=== PATIENT | male | born 1975 | race Two or more races ===

== ENCOUNTER 2019-11-02 13:50 | Emergency (ER) | payer OTHER, BC ==
--- NOTE | 2019-11-02 14:40 | EDM.PDOC ---
ED HPI GENERAL MEDICAL PROBLEM - General Chief Complaint: Upper Extremity Injury/Pain Stated Complaint: HURT RT ARM Time Seen by Provider: 11/02/19 14:30 Source of Information: Reports: Patient History Limitations: Reports: No Limitations - History of Present Illness INITIAL COMMENTS - FREE TEXT/NARRATIVE: HISTORY AND PHYSICAL: History of present illness: Patient is a 44-year-old male who presents to the emergency room today with complaints of right elbow pain that radiates into his forearm. 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 He also has hit his upper extremities into things and states he may have injured it without knowing. Pain has progressively gotten worse over the past several days. He notices when he is using his upper extremity he has pain that originates in the elbow and moves into the forearm musculature. He denies any numbness, tingling, saddle paresthesia or weakness of the upper extremity. Review of systems: As per history of present illness and below otherwise all systems reviewed and negative. Past medical history: As per history of present illness and as reviewed below otherwise noncontributory. Surgical history: As per history of present illness and as reviewed below otherwise noncontributory. Social history: See social history for further information Family history: As per history of present illness and as reviewed below otherwise noncontributory. Physical exam: General: HEENT: Atraumatic, normocephalic, pupils equal and reactive bilaterally, negative for conjunctival pallor or scleral icterus, mucous membranes moist, TMs normal bilaterally, throat clear, neck supple, nontender, trachea midline. No drooling or trismus noted. No meningeal signs. No hot potato voice noted. Lungs: Clear to auscultation, breath sounds equal bilaterally, chest nontender. Heart: S1S2, regular rate and rhythm without overt murmur Abdomen: Soft, nondistended, nontender. Negative for masses or hepatosplenomegaly. Negative for costovertebral tenderness. Pelvis: Stable nontender. Genitourinary: Deferred. Rectal: Deferred. Skin: Intact, warm, dry. No lesions or rashes noted. Extremities: Moves all extremities per self without difficulty or deficits. Pain during resisted wrist and digit extension and during passive wrist flexion of the elbow extended. No soft tissue swelling noted. Strong radial pulse. Strong grasp. No olecranon tenderness. Neurovascular unremarkable. Neuro: Awake, alert, oriented. Cranial nerves II through XII unremarkable. Cerebellum unremarkable. Motor and sensory unremarkable throughout. Exam nonfocal. Notes: Due to patient's uncertainty of injury I will get an x-ray to rule out any occult fracture. X-ray shows no acute findings. Medication, splinting and supportive care measures were reviewed and discussed. Voices understanding and is agreeable to plan of care. Denies any further questions or concerns at this time. Diagnostics: X-ray Therapeutics: Toradol IM Prescription: Diclofenac Impression: Epicondylitis Plan: 1. Rest, ice and use the brace/strap as we discussed. Epicondylitis (tennis elbow) can take up to 6 weeks to improve 2. Tylenol and Diclofenac as directed. Do not take any additional NSAIDs such as ibuprofen or Aleve while taking this medication. Please take with food. 3. Follow-up with an orthopedic provider as we discussed. Return to the ED as needed and as discussed. Definitive disposition and diagnosis as appropriate pending reevaluation and review of above. Right Elbow Pain Score (Numeric/FACES): 5 - Related Data Allergies Allergy/AdvReac Type Severity Reaction Status Date / Time No Known Allergies Allergy Verified 11/02/19 14:30 Home Meds: Home Meds atoMOXetine HCl [Strattera] 07/30/18 [History] metFORMIN HCl [Metformin HCl] 07/30/18 [History] Methylphenidate [Ritalin] 11/02/19 [History] Pioglitazone [Actos] 11/02/19 [History] Past Medical History Psychiatric History: Reports: ADHD Endocrine/Metabolic History: Reports: Diabetes, Type II - Infectious Disease History Infectious Disease History: Reports: Chicken Pox Social & Family History - Family History Family Medical History: Noncontributory - Tobacco Use Smoking Status *Q: Current Every Day Smoker Years of Tobacco use: 25 Packs/Tins Daily: 0.5 - Caffeine Use Caffeine Use: Reports: Energy Drinks, Soda - Recreational Drug Use Recreational Drug Use: No Review of Systems - Review of Systems Review Of Systems: Comprehensive ROS is negative, except as noted in HPI. ED EXAM, GENERAL - Physical Exam Exam: See Below (See dictation) Course - Vital Signs Last Recorded V/S: Last Vital Signs Temp 98.0 F 11/02/19 14:29 Pulse 92 11/02/19 14:29 Resp 17 11/02/19 14:29 BP 182/97 H 11/02/19 14:29 Pulse Ox 95 11/02/19 14:29 - Orders/Labs/Meds Meds: Medications Discontinued Medications Generic Name Dose Route Start Last Admin Trade Name Christine PRN Reason Stop Dose Admin Ketorolac Tromethamine 60 mg 11/02/19 14:42 11/02/19 14:52 Toradol IM 11/02/19 14:43 60 mg ONETIME ONE Administration Departure - Departure Time of Disposition: 15:51 Disposition: Home, Self-Care 01 Clinical Impression: Epicondylitis - Discharge Information Referrals: Colby Crystal [Primary Care Provider] - Forms: ED Department Discharge Additional Instructions: The following information is given to patients seen in the emergency department who are being discharged to home. This information is to outline your options for follow-up care. We provide all patients seen in our emergency department with a follow-up referral. The need for follow-up, as well as the timing and circumstances, are variable depending upon the specifics of your emergency department visit. If you don't have a primary care physician on staff, we will provide you with a referral. We always advise you to contact your personal physician following an emergency department visit to inform them of the circumstance of the visit and for follow-up with them and/or the need for any referrals to a consulting specialist. The emergency department will also refer you to a specialist when appropriate. This referral assures that you have the opportunity for follow-up care with a specialist. All of these measure are taken in an effort to provide you with optimal care, which includes your follow-up. Under all circumstances we always encourage you to contact your private physician who remains a resource for coordinating your care. When calling for follow-up care, please make the office aware that this follow-up is from your recent emergency room visit. If for any reason you are refused follow-up, please contact the [facility] Emergency Department at and asked to speak to the emergency department charge nurse. [facility] [address] [place] [id number] [facility] [address] [place] [address] 1. Rest, ice and use the brace/strap as we discussed. Epicondylitis (tennis elbow) can take up to 6 weeks to improve 2. Tylenol and Diclofenac as directed. Do not take any additional NSAIDs such as ibuprofen or Aleve while taking this medication. Please take with food. 3. Follow-up with an orthopedic provider as we discussed. Return to the ED as needed and as discussed. Sepsis Event Note - Evaluation Sepsis Screening Result: No Definite Risk - Focused Exam Vital Signs: Vital Signs Temp Pulse Resp BP Pulse Ox 11/02/19 14:29 98.0 F 92 17 182/97 H 95 Date Exam was Performed: 11/02/19 Time Exam was Performed: 15:48
[2019-11-02] MEDS ORDERED: Ketorolac 60 MG/2 ML SDV IM ONE (14:42)
--- NOTE | 2019-11-02 15:36 | CR ---
Right elbow: 3 views of the right elbow were obtained. No joint effusion is seen. Joint spaces are preserved. No acute fracture, dislocation or other bony abnormality is identified. Impression: 1. No abnormality is appreciated on right elbow study. Diagnostic code #1 Study was dictated in [place] Standard Time
== END 2019-11-02 16:12 | disposition home or self-care (01) ==
LOC: MW.ED 13:50
DX: M77.11 Lateral epicondylitis, right elbow (principal); F90.9 Attention-deficit hyperactivity disorder, unspecified type; E11.9 Type 2 diabetes mellitus without complications; F17.210 Nicotine dependence, cigarettes, uncomplicated; Z79.84 Long term (current) use of oral hypoglycemic drugs; Z79.899 Other long term (current) drug therapy
CPT/HCPCS: 73080; 96372; 99283; J1885

== ENCOUNTER 2021-02-14 17:45 | Emergency (ER) | payer BC ==
[2021-02-14] MEDS ORDERED: Sodium Chloride 0.9% 10 ML Syringe FLUSH PRN (18:23)
[2021-02-14] MEDS ORDERED: Sodium Chloride 0.9% 2.5 ML Syringe FLUSH PRN (18:23)
[2021-02-14] MEDS ORDERED: diphenhydrAMINE 50 MG/ML SDV IVPUSH ONE ×2 (18:23→18:27)
[2021-02-14] MEDS ORDERED: Haloperidol Lactate 5 MG/ML SDV IM ONE (18:26)
[2021-02-14] MEDS ORDERED: LORazepam 2 MG/ML SDV IVPUSH ONE (18:27)
--- NOTE | 2021-02-14 18:45 | EDM.PDOC ---
<Igor Jay - Last Filed: 02/14/21 21:34> ED HPI GENERAL MEDICAL PROBLEM - General Chief Complaint: Behavioral/Psych Stated Complaint: ANXIETY Time Seen by Provider: 02/14/21 18:02 - Related Data Allergies Allergy/AdvReac Type Severity Reaction Status Date / Time No Known Allergies Allergy Verified 02/14/21 18:07 Home Meds: Home Meds atoMOXetine HCl [Strattera] 25 mg PO DAILY 07/30/18 [History] metFORMIN HCl [Metformin HCl] 500 mg PO DAILY 07/30/18 [History] Methylphenidate [Ritalin] 5 mg PO DAILY 11/02/19 [History] Pioglitazone [Actos] 15 mg PO DAILY 11/02/19 [History] Departure - Departure Time of Disposition: 21:35 Disposition: DC/Tfer to Other 70 Condition: Good Clinical Impression: Psychosis - Discharge Information Instructions: Caring for Your Mental Health, Schizophrenia Forms: ED Department Discharge Additional Instructions: Please follow-up with the resources provided crisis center. The following information is given to patients seen in the emergency department who are being discharged to home. This information is to outline your options for follow-up care. We provide all patients seen in our emergency department with a follow-up referral. The need for follow-up, as well as the timing and circumstances, are variable depending upon the specifics of your emergency department visit. If you don't have a primary care physician on staff, we will provide you with a referral. We always advise you to contact your personal physician following an emergency department visit to inform them of the circumstance of the visit and for follow-up with them and/or the need for any referrals to a consulting specialist. The emergency department will also refer you to a specialist when appropriate. This referral assures that you have the opportunity for follow-up care with a specialist. All of these measure are taken in an effort to provide you with optimal care, which includes your follow-up. Under all circumstances we always encourage you to contact your private physician who remains a resource for coordinating your care. When calling for follow-up care, please make the office aware that this follow-up is from your recent emergency room visit. If for any reason you are refused follow-up, please contact the [facility] Emergency Department at and asked to speak to the emergency department charge nurse. - Assessment/Plan Assessment:: Patient is a 45-year-old male presents with acute psychosis. He was received in signout from Dr. Weaver at 7 PM. Patient given Haldol and Ativan. Patient calm and cooperative at this time. Patient has no SI or HI. When patient is medically clear he may be appropriate for evaluation and treatment of the crisis center. However, we will continue to reassess. 1944: Patient has remained calm and cooperative here. His labs are unremarkable. I do think he would be a reasonable candidate for [facility] patient discussed in full with their intake provider and she will come evaluate the patient. 2133: Pt has been evaluated by director social and is felt appropriate for the crisis center patient will be given a dose of 5 mg of oral Zyprexa for overnight coverage tonight but he remains calm and cooperative. Patient is medically clear at this time and is felt stable for discharge. <Lino Weaver - Last Filed: 02/15/21 19:27> ED HPI GENERAL MEDICAL PROBLEM - History of Present Illness INITIAL COMMENTS - FREE TEXT/NARRATIVE: History of present illness: [] The patient was brought here by a fellow employee. 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 The patient says he had a headache 2 days ago and felt fatigued so he went home near the beginning of his shift. He slept through most of his 4 PM to 12 PM shift time. The next day yesterday he worked his shift from 4 PM to 12 PM. When he went home he had some conversations that are hard for me to follow as he describes. I am not sure what he is telling me he did or did not use a telephone to talk to his ex- girlfriend's ex-girlfriend's friends and his girlfriend who is in the [facility] [employer]. He seems ambivalent about his relationship with his ex-girlfriend and ex-girlfriend's friend. He seems to have communicated with them but he is not specific about what he texted use the phone or had some other way to communicate. Clearly he says he talk to his girlfriend in the [facility] [employer] but then he told me he did not use the phone. After those episodes and feeling like he was somewhat sleep deprived he looked at pornography on the Internet and masturbated. After he did that he felt the same. He heard the voice of God telling he was a teacher. He says he feels like he hates the part of himself but allows him to do those things and causes God to say he is a cheater. He admits that he spent time including part of his adolescence in an inpatient psychiatric facility at [facility]. He had been on Haldol and lithium both as well as other antipsychotics and mood altering medications. He is not under direct supervision at this time by psychiatrist but does list some medicines that he is supposed to take. The patient has no intention to hurt himself or anyone else. He claims he does not want to . He refers to a [employer] movie and says he has that kind of intense well to live. The patient would accept medication to try to stop the same in the voice of God. He also would accept voluntarily transport to a place where he could talk to [facility] psychiatrist and receive help and appropriate medication for the chemical imbalance a cause of these things to happen. Review of systems: As per history of present illness and below otherwise all systems reviewed and negative. Past medical history: As per history of present illness and as reviewed below otherwise noncontributory. Surgical history: As per history of present illness and as reviewed below otherwise noncontributory. Social history: No reported history of drug or alcohol abuse. Family history: As per history of present illness and as reviewed below otherwise noncontributory. Physical exam: Constitutional - well developed, well-nourished and in no acute distress HEENT - normocephalic, no evidence of trauma - external nose and mouth normal - no mass in neck and no JVD - mucosae moist EYES - full EOM, PERRL, no icterus - no evidence of inflammation, injection, or drainage Respiratory - no respiratory distress, equal bilateral expansion, lungs clear to auscultation and no abnormal lung sounds Cardiovascular - Regular Rhythm with S1 and S2 appreciated and no murmur, gallop or rub. GI - abdomen soft without distension or organomegaly - normal bowel sounds - no guard or rebound Musculoskeletal no gross deformity of long bones or joints - no tenderness, swelling or edema Neurologic - Alert and oriented times four - CN II-XII grossly intact - motor sensory and coordination symmetrically normal Psychiatric -reasonably appropriate mood. Flat affect. Appears to have some ambivalence about his feelings toward his girlfriend ex-girlfriend and the behavior she described above. He has some psychotic features with clearly an auditory hallucination where he heard the voice of God and the delusion that in fact that was the voice. Hematologic - No petechiae or purpura - mucosa appropriate color and sclera not pale - normal nail bed color and refill Integument - no rash or evidence of trauma - normal turgor Diagnostics: [] Therapeutics: [] Impression: [] Plan: [] Definitive disposition and diagnosis as appropriate pending reevaluation and review of above. Past Medical History - Past Health History Medical/Surgical History: Denies Medical/Surgical History Psychiatric History: Reports: ADHD, Anxiety Endocrine/Metabolic History: Reports: Diabetes, Type II - Infectious Disease History Infectious Disease History: Reports: Chicken Pox Social & Family History - Family History Family Medical History: No Pertinent Family History - Tobacco Use Tobacco Use Status *Q: Current Every Day Tobacco User Years of Tobacco use: 20 Packs/Tins Daily: 1 - Caffeine Use Caffeine Use: Reports: None - Recreational Drug Use Recreational Drug Use: No ED ROS GENERAL - Review of Systems Review Of Systems: Comprehensive ROS is negative, except as noted in HPI. ED EXAM, GENERAL - Physical Exam Exam: See Below Free Text/Narrative:: My physical exam is in the HPI #1 Interpretation EKG Interpretation Comments: EKG sinus rhythm heart rate 84. The ND interval is 157 QT duration is 426. The axis -35. The QRS shows a late transition with no complete transition R wave in a large S wave in the inferior leads. There is no prior for comparison. Impression there is no obvious injury and no significant QT prolongation that would contraindicate haloperidol use. Course - Vital Signs Text/Narrative:: It is my impression that this patient has an underlying schizophrenia and is at this point psychotic but not dangerous to himself or others. I believe he would be appropriate for voluntary observation if there is a bed in the [facility]. The plan is to do the screening work-up and then medicate the patient and see if he responds well. Then I will discussed the case with my partner who will replace me at 7 PM. I would suggest that he consider talking to [facility] because the patient might be appropriate for local placement rather than transport. Last Recorded V/S: Last Vital Signs Temp 37.2 C 02/14/21 18:08 Pulse 64 02/14/21 19:42 Resp 15 02/14/21 19:42 BP 141/69 H 02/14/21 19:42 Pulse Ox 98 02/14/21 19:42 - Orders/Labs/Meds Labs: Laboratory Tests 02/14/21 02/14/21 02/14/21 Range/Units 18:26 18:26 18:26 WBC 11.46 H (4.0-11.0) K/uL RBC 5.36 (4.50-5.90) M/uL Hgb 15.6 (13.0-17.0) g/dL Hct 46.6 (38.0-50.0) % MCV 86.9 (80.0-98.0) fL MCH 29.1 (27.0-32.0) pg MCHC 33.5 (31.0-37.0) g/dL RDW Std Deviation 44.8 (28.0-62.0) fl RDW Coeff of Ginger 14 (11.0-15.0) % Plt Count 298 (150-400) K/uL MPV 10.30 (7.40-12.00) fL Neut % (Auto) 73.3 (48.0-80.0) % Lymph % (Auto) 20.6 (16.0-40.0) % Lassen % (Auto) 4.9 (0.0-15.0) % Eos % (Auto) 1.0 (0.0-7.0) % Baso % (Auto) 0.2 (0.0-1.5) % Neut # (Auto) 8.4 H (1.4-5.7) K/uL Lymph # (Auto) 2.4 (0.6-2.4) K/uL Lassen # (Auto) 0.6 (0.0-0.8) K/uL Eos # (Auto) 0.1 (0.0-0.7) K/uL Baso # (Auto) 0.0 (0.0-0.1) K/uL Nucleated RBC % 0.0 /100WBC Nucleated RBCs # 0 K/uL Sodium 140 (136-148) mmol/L Potassium 3.8 (3.5-5.1) mmol/L Chloride 102 (98-107) mmol/L Carbon Dioxide 28.0 (21.0-32.0) mmol/L BUN 18 (7.0-18.0) mg/dL Creatinine 1.1 (0.8-1.3) mg/dL Est Cr Clr Drug Dosing 91.27 mL/min Estimated GFR (MDRD) > 60.0 ml/min Glucose 178 H (74-106) mg/dL Calcium 9.5 (8.5-10.1) mg/dL Total Bilirubin 0.8 (0.2-1.0) mg/dL AST 24 (15-37) IU/L ALT 27 (14-63) IU/L Alkaline Phosphatase 68 (46-116) U/L Total Protein 7.5 (6.4-8.2) g/dL Albumin 3.7 (3.4-5.0) g/dL Globulin 3.8 (2.6-4.0) g/dL Albumin/Globulin Ratio 1.0 (0.9-1.6) TSH 3rd Generation 0.75 (0.36-3.74) uIU/mL Salicylates (0-20) mg/dL Urine Opiates Screen NEGATIVE (NEGATIVE) Ur Oxycodone Screen NEGATIVE (NEGATIVE) Urine Methadone Screen NEGATIVE (NEGATIVE) Acetaminophen ug/mL Ur Barbiturates Screen NEGATIVE (NEGATIVE) Ur Phencyclidine Scrn NEGATIVE (NEGATIVE) Ur Amphetamine Screen NEGATIVE (NEGATIVE) U Methamphetamines Scrn NEGATIVE (NEGATIVE) U Benzodiazepines Scrn NEGATIVE (NEGATIVE) U Cocaine Metab Screen NEGATIVE (NEGATIVE) U Marijuana (THC) Screen NEGATIVE (NEGATIVE) Ethyl Alcohol <3 mg/dL 02/14/21 Range/Units 18:26 WBC (4.0-11.0) K/uL RBC (4.50-5.90) M/uL Hgb (13.0-17.0) g/dL Hct (38.0-50.0) % MCV (80.0-98.0) fL MCH (27.0-32.0) pg MCHC (31.0-37.0) g/dL RDW Std Deviation (28.0-62.0) fl RDW Coeff of Ginger (11.0-15.0) % Plt Count (150-400) K/uL MPV (7.40-12.00) fL Neut % (Auto) (48.0-80.0) % Lymph % (Auto) (16.0-40.0) % Lassen % (Auto) (0.0-15.0) % Eos % (Auto) (0.0-7.0) % Baso % (Auto) (0.0-1.5) % Neut # (Auto) (1.4-5.7) K/uL Lymph # (Auto) (0.6-2.4) K/uL Lassen # (Auto) (0.0-0.8) K/uL Eos # (Auto) (0.0-0.7) K/uL Baso # (Auto) (0.0-0.1) K/uL Nucleated RBC % /100WBC Nucleated RBCs # K/uL Sodium (136-148) mmol/L Potassium (3.5-5.1) mmol/L Chloride (98-107) mmol/L Carbon Dioxide (21.0-32.0) mmol/L BUN (7.0-18.0) mg/dL Creatinine (0.8-1.3) mg/dL Est Cr Clr Drug Dosing mL/min Estimated GFR (MDRD) ml/min Glucose (74-106) mg/dL Calcium (8.5-10.1) mg/dL Total Bilirubin (0.2-1.0) mg/dL AST (15-37) IU/L ALT (14-63) IU/L Alkaline Phosphatase (46-116) U/L Total Protein (6.4-8.2) g/dL Albumin (3.4-5.0) g/dL Globulin (2.6-4.0) g/dL Albumin/Globulin Ratio (0.9-1.6) TSH 3rd Generation (0.36-3.74) uIU/mL Salicylates 1.8 (0-20) mg/dL Urine Opiates Screen (NEGATIVE) Ur Oxycodone Screen (NEGATIVE) Urine Methadone Screen (NEGATIVE) Acetaminophen <2.0 ug/mL Ur Barbiturates Screen (NEGATIVE) Ur Phencyclidine Scrn (NEGATIVE) Ur Amphetamine Screen (NEGATIVE) U Methamphetamines Scrn (NEGATIVE) U Benzodiazepines Scrn (NEGATIVE) U Cocaine Metab Screen (NEGATIVE) U Marijuana (THC) Screen (NEGATIVE) Ethyl Alcohol mg/dL Meds: Medications Discontinued Medications Generic Name Dose Route Start Last Admin Trade Name Freq PRN Reason Stop Dose Admin Diphenhydramine HCl 50 mg 02/14/21 18:23 02/14/21 18:35 Diphenhydramine 50 Mg/Ml Sdv IVPUSH 02/14/21 18:24 Not Given ONETIME ONE Diphenhydramine HCl 25 mg 02/14/21 18:27 02/14/21 18:35 Diphenhydramine 50 Mg/Ml Sdv IVPUSH 02/14/21 18:28 25 mg ONETIME ONE Administration Haloperidol Lactate 2.5 mg 02/14/21 18:26 02/14/21 18:34 Haloperidol Lactate 5 Mg/Ml Sdv IM 02/14/21 18:27 2.5 mg ONETIME ONE Administration Lorazepam 1 mg 02/14/21 18:27 02/14/21 18:35 Lorazepam 2 Mg/Ml Sdv IVPUSH 02/14/21 18:28 1 mg ONETIME ONE Administration Olanzapine 5 mg 02/14/21 21:34 02/14/21 21:46 Olanzapine 5 Mg Tab PO 02/14/21 21:35 5 mg ONETIME ONE Administration Sodium Chloride 10 ml 02/14/21 18:23 02/14/21 18:35 Sodium Chloride 0.9% 10 Ml Syringe FLUSH 10 ml ASDIRECTED PRN Administration Keep Vein Open Sodium Chloride 2.5 ml 02/14/21 18:23 02/14/21 18:35 Sodium Chloride 0.9% 2.5 Ml Syringe FLUSH 2.5 ml ASDIRECTED PRN Administration Keep Vein Open Sepsis Event Note (ED) - Evaluation Sepsis Screening Result: No Definite Risk
[2021-02-14 19:07] LABS: BLOOD UREA NITROGEN,BUN 18 mg/dL (7.0-18.0); CHLORIDE,CL 102 mmol/L (98-107); GLUCOSE RANDOM 178 mg/dL (74-106); POTASSIUM,K 3.8 mmol/L (3.5-5.1); SODIUM,NA 140 mmol/L (136-148)
[2021-02-14 19:17] LABS: ACETAMINOPHEN <2.0 ug/mL
[2021-02-14] MEDS ORDERED: OLANZapine 5 MG Tab PO ONE (21:34)
== END 2021-02-14 22:01 | disposition other institution (70) ==
LOC: MW.ED 17:45
DX: F29 Unspecified psychosis not due to a substance or known physiological condition (principal); E11.9 Type 2 diabetes mellitus without complications; Z72.0 Tobacco use
CPT/HCPCS: 36415; 80053; 80143; 80179; 80305; 80307; 84443; 85025; 93005; 96372; 96374; 96375; 99285; A9270; J1200; J1630; J2060

== ENCOUNTER 2021-02-16 11:33 | Emergency (ER) | payer BC ==
--- NOTE | 2021-02-16 11:50 | EDM.PDOCBH ---
ED HPI GENERAL MEDICAL PROBLEM - General Chief Complaint: Behavioral/Psych Stated Complaint: FATIGUE Time Seen by Provider: 02/16/21 11:38 Source of Information: Reports: Patient History Limitations: Reports: No Limitations - History of Present Illness INITIAL COMMENTS - FREE TEXT/NARRATIVE: HISTORY AND PHYSICAL: History of present illness: The patient is a 45-year-old male with a history of schizophrenia who presents to the emergency room after being discharged from [facility] with complaints of fatigue. Patient states that he was in a class and was so tired and needed to leave the class. He then sat in a waiting room and that someone would come get him and he fell asleep. He then found the class again but was told the class had closed early. He states that he then went to the fourth floor and where he was to get a ride back to the hospital parking lot for his car. The patient states that he just feels so tired he is afraid to walk. He is not sure if he has been eating enough. This morning he ate 1 waffle and half a cup of milk and a handful of dry Cheerios. The patient states that he is not on any new medications. The Patient denies any fever, chills, headache, change in vision, syncope or near syncope. Denies any chest pain, back pain, shortness of breath or cough. Denies any abdominal pain, nausea, vomiting, diarrhea, constipation or dysuria. Has not noted any blood in urine or stool. The patient's only contact his HR at the [employer] where he works. He states that his plan would be to call them to ask where he could stay. Review of systems: As per history of present illness and below otherwise all systems reviewed and negative. Past medical history: As per history of present illness and as reviewed below otherwise noncontributory. Surgical history: As per history of present illness and as reviewed below otherwise noncontributory. Social history: See social history for further information Family history: As per history of present illness and as reviewed below otherwise noncontributory. Physical exam: General: Well developed and well nourished. Alert and orientated x 3. Nontoxic in appearance and in no acute distress. Vital signs are stable and have been reviewed by me. Nursing notes were reviewed. HEENT: Atraumatic, normocephalic, pupils equal and reactive bilaterally, negative for conjunctival pallor or scleral icterus, mucous membranes moist, TMs normal bilaterally, throat clear, neck supple, nontender, trachea midline. No drooling or trismus noted. No meningeal signs. No hot potato voice noted. Lungs: Clear to auscultation bilaterally. No wheezes, rales, or rhonchi. Chest nontender. Normal work of breathing, no accessory muscles used. Heart: S1S2, regular rate and rhythm without overt murmur, gallops, or rubs. No JVD. No peripheral edema Abdomen: Soft, nondistended, nontender. Normoactive bowel sounds. Negative for masses or costovertebral tenderness. Skin: Intact, warm, dry. No lesions or rashes noted. Hematologic: No petechiae or purpra. Mucosa appropriate color and normal nail bed color and refill. Extremities: Atraumatic, moves all extremities per self without difficulty or deficits, negative for cords or calf pain. Neurovascular unremarkable. Neuro: Awake, alert, oriented. Cranial nerves II through XII unremarkable. Cerebellum unremarkable. Motor and sensory unremarkable throughout. Exam nonfocal. Psychiatric: Mood and affect are appropriate. Answering questions appropriately. Notes: *This patient was seen and evaluated during the 2019 SARS-CoV-2 novel coronavirus pandemic period. Community viral transmission is ongoing at time of this encounter and the emergency department is operating under pandemic response procedures. As stated above the patient is here for complaints of fatigue and wanting to sleep. The patient states that he got up earlier than normal and normally does not get up until around noon. He does not attribute this to his sleepiness. He does states he does not have a friend to stay with. He states he really wants his brain waves checked out. I informed the patient he would need to go to a neurologist for an EEG. The patient is agreeable to having labs and a urine done to ensure there is no infection going on. I inquired as to the patient's mental status and he states he does not feel like his he is having a problem with that. 12:53: The patient CBC is unremarkable. 13:08: The patient's urine is negative for infection but does show 500 of glucose. The patient states he has not taken his Metformin today. 13:16: The patient's CMP is unremarkable except for a an elevated glucose of 180. The patient now informs me that he had a red bull prior to entering the emergency room today. The patient does complain of nausea and I will treat him with Zofran and then offer him lunch to see how he does. 14:00 The patient ate his lunch and tolerated well. I will discharge him to home. I have talked with the patient about today's findings, in addition to providing specific details for plan of care. Reassessment at the time of disposition demonstrates that the patient is in no acute distress. The patient is stable for discharge, counseling was provided and we discussed in great detail signs and symptoms that would prompt them to return to the Emergency Department. Medication, follow up and supportive care measures were reviewed and discussed. Voices understanding and is agreeable to plan of care. Denies any further questions or concerns at this time. Diagnostics: CBC, CMP, [employer]: Zofran Impression: Fatigue, nausea Plan: 1. You were evaluated today on an emergent basis. Your plaints of fatigue were evaluated with blood work and a urinalysis which were all normal. Your complaints of nausea was treated with a oral Zofran and you were given a lunch tray which he tolerated. He will need to talk with your emergency contact regarding possibly staying with them until you feel better. Your glucose was elevated due to not taking your Metformin this morning. I did offer you one declined stating you would take your Metformin that you had in your car. 2. You can alternate Tylenol and ibuprofen as needed for pain and fever management. 3. We encourage you to follow up with your primary care provider and/or recommended specialist in the next few days for re-evaluation and further care/management. 4. If your symptoms should worsen, new symptoms develop or any of the signs and symptoms we discussed should arise please return to the emergency room or call 911 (if needed). Definitive disposition and diagnosis as appropriate pending reevaluation and review of above. - Related Data Allergies Allergy/AdvReac Type Severity Reaction Status Date / Time No Known Allergies Allergy Verified 02/14/21 18:07 Home Meds: Home Meds atoMOXetine HCl [Strattera] 25 mg PO DAILY 07/30/18 [History] metFORMIN HCl [Metformin HCl] 500 mg PO DAILY 07/30/18 [History] Methylphenidate [Ritalin] 5 mg PO DAILY 11/02/19 [History] Pioglitazone [Actos] 15 mg PO DAILY 02/18/20 [History] Past Medical History - Past Health History Medical/Surgical History: Denies Medical/Surgical History Psychiatric History: Reports: ADHD, Anxiety Endocrine/Metabolic History: Reports: Diabetes, Type II - Infectious Disease History Infectious Disease History: Reports: Chicken Pox Social & Family History - Family History Family Medical History: No Pertinent Family History - Caffeine Use Caffeine Use: Reports: None ED ROS GENERAL - Review of Systems Review Of Systems: Comprehensive ROS is negative, except as noted in HPI. ED EXAM, BEHAVIORAL HEALTH - Physical Exam Exam: See Below (See dictation) COURSE, BEHAVIORAL HEALTH COMP - Course Vital Signs: Last Vital Signs Temp 97.8 F 02/16/21 11:52 Pulse 69 02/16/21 11:52 Resp 18 02/16/21 11:52 BP 150/84 H 02/16/21 11:52 Pulse Ox 97 02/16/21 11:52 Orders, Labs, Meds: Laboratory Tests 02/16/21 02/16/21 02/16/21 Range/Units 12:20 12:20 12:41 WBC 9.13 (4.0-11.0) K/uL RBC 5.34 (4.50-5.90) M/uL Hgb 15.2 (13.0-17.0) g/dL Hct 46.4 (38.0-50.0) % MCV 86.9 (80.0-98.0) fL MCH 28.5 (27.0-32.0) pg MCHC 32.8 (31.0-37.0) g/dL RDW Std Deviation 43.8 (28.0-62.0) fl RDW Coeff of Ginger 14 (11.0-15.0) % Plt Count 291 (150-400) K/uL MPV 10.10 (7.40-12.00) fL Neut % (Auto) 71.3 (48.0-80.0) % Lymph % (Auto) 21.4 (16.0-40.0) % [place] % (Auto) 5.7 (0.0-15.0) % Eos % (Auto) 1.5 (0.0-7.0) % Baso % (Auto) 0.1 (0.0-1.5) % Neut # (Auto) 6.5 H (1.4-5.7) K/uL Lymph # (Auto) 2.0 (0.6-2.4) K/uL [place] # (Auto) 0.5 (0.0-0.8) K/uL Eos # (Auto) 0.1 (0.0-0.7) K/uL Baso # (Auto) 0.0 (0.0-0.1) K/uL Nucleated RBC % 0.0 /100WBC Nucleated RBCs # 0 K/uL Sodium 138 (136-148) mmol/L Potassium 3.8 (3.5-5.1) mmol/L Chloride 102 (98-107) mmol/L Carbon Dioxide 27.0 (21.0-32.0) mmol/L BUN 13 (7.0-18.0) mg/dL Creatinine 0.9 (0.8-1.3) mg/dL Est Cr Clr Drug Dosing 111.56 mL/min Estimated GFR (MDRD) > 60.0 ml/min Glucose 180 H (74-106) mg/dL Calcium 8.8 (8.5-10.1) mg/dL Total Bilirubin 0.4 (0.2-1.0) mg/dL AST 13 L (15-37) IU/L ALT 26 (14-63) IU/L Alkaline Phosphatase 67 (46-116) U/L Total Protein 7.3 (6.4-8.2) g/dL Albumin 3.7 (3.4-5.0) g/dL Globulin 3.6 (2.6-4.0) g/dL Albumin/Globulin Ratio 1.0 (0.9-1.6) Urine Color YELLOW Urine Appearance CLEAR Urine pH 5.5 (5.0-8.0) Ur Specific [place] >= 1.030 (1.001-1.035) Urine Protein NEGATIVE (NEGATIVE) mg/dL Urine Glucose (UA) 500 H (NEGATIVE) mg/dL Urine Ketones NEGATIVE (NEGATIVE) mg/dL Urine Occult Blood NEGATIVE (NEGATIVE) Urine Nitrite NEGATIVE (NEGATIVE) Urine Bilirubin NEGATIVE (NEGATIVE) Urine Urobilinogen 0.2 (<2.0) EU/dL Ur Leukocyte Esterase NEGATIVE (NEGATIVE) Medications Discontinued Medications Generic Name Dose Route Start Last Admin Trade Name Freq PRN Reason Stop Dose Admin Ondansetron HCl 4 mg 02/16/21 13:17 02/16/21 13:22 Ondansetron 4 Mg Tab.Dis PO 02/16/21 13:18 4 mg ONETIME ONE Administration Departure - Departure Time of Disposition: 13:56 Disposition: Home, Self-Care 01 Condition: Good Clinical Impression: Nausea Fatigue Qualifiers: Fatigue type: unspecified Qualified Code(s): R53.83 - Other fatigue - Discharge Information *PRESCRIPTION DRUG MONITORING PROGRAM REVIEWED*: Not Applicable *COPY OF PRESCRIPTION DRUG MONITORING REPORT IN PATIENT [place]ABELLE: Not Applicable Instructions: Fatigue, Nausea, Adult, [id number] Referrals: Colby Crystal [Primary Care Provider] - Forms: ED Department Discharge Additional Instructions: The following information is given to patients seen in the emergency department who are being discharged to home. This information is to outline your options for follow-up care. We provide all patients seen in our emergency department with a follow-up referral. The need for follow-up, as well as the timing and circumstances, are variable depending upon the specifics of your emergency department visit. If you don't have a primary care physician on staff, we will provide you with a referral. We always advise you to contact your personal physician following an emergency department visit to inform them of the circumstance of the visit and for follow-up with them and/or the need for any referrals to a consulting specialist. The emergency department will also refer you to a specialist when appropriate. This referral assures that you have the opportunity for follow-up care with a specialist. All of these measure are taken in an effort to provide you with optimal care, which includes your follow-up. Under all circumstances we always encourage you to contact your private physician who remains a resource for coordinating your care. When calling for follow-up care, please make the office aware that this follow-up is from your recent emergency room visit. If for any reason you are refused follow-up, please contact the [facility] Emergency Department at and asked to speak to the emergency department charge nurse. [facility] - [facility] [address] [place] [address] [id number] [address] [address] Plan: 1. You were evaluated today on an emergent basis. Your plaints of fatigue were evaluated with blood work and a urinalysis which were all normal. Your complaints of nausea was treated with a oral Zofran and you were given a lunch tray which he tolerated. He will need to talk with your emergency contact regarding possibly staying with them until you feel better. Your glucose was elevated due to not taking your Metformin this morning. I did offer you one declined stating you would take your Metformin that you had in your car. 2. You can alternate Tylenol and ibuprofen as needed for pain and fever management. 3. We encourage you to follow up with your primary care provider and/or recommended specialist in the next few days for re-evaluation and further care/management. 4. If your symptoms should worsen, new symptoms develop or any of the signs and symptoms we discussed should arise please return to the emergency room or call 911 (if needed). Sepsis Event Note (ED) - Focused Exam Vital Signs: Vital Signs Temp Pulse Resp BP Pulse Ox 02/16/21 11:52 97.8 F 69 18 150/84 H 97
[2021-02-16 13:10] LABS: BLOOD UREA NITROGEN,BUN 13 mg/dL (7.0-18.0); CHLORIDE,CL 102 mmol/L (98-107); GLUCOSE RANDOM 180 mg/dL (74-106); POTASSIUM,K 3.8 mmol/L (3.5-5.1); SODIUM,NA 138 mmol/L (136-148)
[2021-02-16] MEDS ORDERED: Ondansetron 4 MG Tab.DIS PO ONE (13:17)
== END 2021-02-16 14:10 | disposition home or self-care (01) ==
LOC: MW.ED 11:33
DX: R53.83 Other fatigue (principal); R11.0 Nausea; E11.9 Type 2 diabetes mellitus without complications; Z79.84 Long term (current) use of oral hypoglycemic drugs
CPT/HCPCS: 36415; 80053; 81003; 85025; 99283; A9270

== ENCOUNTER 2024-09-16 16:37 | Emergency (ER) | payer BC ==
[2024-09-16] MEDS: traMADol 50 MG Tab PO STA (17:57)
== END 2024-09-16 20:10 | disposition home or self-care (01) ==
LOC: MW.ED 16:37
DX: M79.671 Pain in right foot (principal); E11.9 Type 2 diabetes mellitus without complications; F17.210 Nicotine dependence, cigarettes, uncomplicated; Z79.84 Long term (current) use of oral hypoglycemic drugs; Z79.899 Other long term (current) drug therapy; Z75.8 Other problems related to medical facilities and other health care
CPT/HCPCS: 73630; 99283; A9270